=== PATIENT | male | born 1990 | race African-American/Black ===

== ENCOUNTER 2017-10-23 13:56 | Emergency (ER) | payer MEDICAID ==
[~2017-10-23] VITALS: Ht 182.9 cm; Wt 64.0 kg
[2017-10-23] MEDS ORDERED: IBUPROFEN 600MG TABLET PO ONE (17:45)
[2017-10-23 18:44] VITALS: BP 107/68
== END 2017-10-23 19:17 | disposition home or self-care (01) ==
LOC: ER 13:56
DX: S82.435A Nondisplaced oblique fracture of shaft of left fibula, initial encounter for closed fracture (principal); J45.909 Unspecified asthma, uncomplicated; F17.200 Nicotine dependence, unspecified, uncomplicated; X37.1XXA Tornado, initial encounter; Y93.67 Activity, basketball; Y92.89 Other specified places as the place of occurrence of the external cause; Y99.8 Other external cause status
CPT/HCPCS: 29515; 73610; 73630; 99284; Z7610